=== PATIENT | female | born 1955 | race African-American/Black ===

== ENCOUNTER 2020-12-28 11:41 | Emergency (ER) | payer OTHER ==
[2020-12-28 12:00] VITALS: TEMP 97.9; BMI 38.7
[2020-12-28 14:40] VITALS: BP 140/72; PULSE 80
== END 2020-12-28 14:40 | disposition home or self-care (01) ==
LOC: JER 11:41
PROC: 0HQ0XZZ Repair Scalp Skin, External Approach (ICD-10-PCS; principal; 2020-12-28)
DX: S09.90XA Unspecified injury of head, initial encounter (principal)
CPT/HCPCS: 70450-TC; 99284-25

== ENCOUNTER 2021-01-04 10:55 | Emergency (ER) | payer OTHER ==
[2021-01-04 11:00] VITALS: BP 137/80; PULSE 83; TEMP 98.2
== END 2021-01-04 11:30 | disposition home or self-care (01) ==
LOC: JERFT 10:55
DX: Z48.02 Encounter for removal of sutures (principal)
CPT/HCPCS: 99281-25